=== PATIENT | male | born 1975 | race Caucasian/White ===

== ENCOUNTER 2023-03-21 14:43 | Day surgery (SDC) | payer OTHER ==
[~2023-03-21] VITALS: Ht 172.7 cm; Wt 89.7 kg
[~2023-03-21 14:43] MED LIST: ACET325; METF500; TYLENOL
[2023-03-21] MEDS ORDERED: METF500C (15:42)
--- NOTE | 2023-03-21 16:41 | NUR ---
03/21/23 1641 Lolly Cardzoo ROPIVACAINE 0.5% 30 MLS MIXED & VERIFIED W/ EPI 0.15 (1MG/ML) PER ORDER, TO MAKE ROPIVACAINE 0.5% 1:200,000 FOR INJECTION AT OPSITE BY DR GALLO.
[2023-03-21 17:40] VITALS: BP 143/81
--- NOTE | 2023-03-21 18:10 | NUR ---
03/21/23 1810 Allen Garcia PROVIDED NORCO 5/325MG FOR 6/10 PAIN WHICH PT STATES IS ACCEPTABLE FOR DISCHARGE. REINFORCED ICE AND ELEVATION, PT VERBALIZED UNDERSTANDING
== END 2023-03-21 18:15 | disposition home or self-care (01) ==
LOC: ORSCSDS 14:43
PROVIDERS: Podiatrist Foot & Ankle Surgery
PROC: 0SGM04Z Fusion of Right Metatarsal-Phalangeal Joint with Internal Fixation Device, Open Approach (ICD-10-PCS; principal; 2023-03-21 16:00)
PROC: 0QSN04Z Reposition Right Metatarsal with Internal Fixation Device, Open Approach (ICD-10-PCS; principal; 2023-03-21 16:00)
PROC: 0QSQ04Z Reposition Right Toe Phalanx with Internal Fixation Device, Open Approach (ICD-10-PCS; principal; 2023-03-21 16:00)
DX: M20.5X1 Other deformities of toe(s) (acquired), right foot (principal); M21.621 Bunionette of right foot; E11.9 Type 2 diabetes mellitus without complications; E78.5 Hyperlipidemia, unspecified; Z79.84 Long term (current) use of oral hypoglycemic drugs; Z87.891 Personal history of nicotine dependence
CPT/HCPCS: 82947; A9270; C1713; C1769; J0171; J0690; J2704; J2795; J3010; J7120